=== PATIENT | female | born 1980 | race Caucasian/White ===

== ENCOUNTER 2016-09-21 21:16 | Emergency (ER) | payer MEDICAID ==
[~2016-09-21] VITALS: Ht 160 cm; Wt 68.0 kg
[~2016-09-21 21:16] MED LIST: NORG1TAB30
[2016-09-21 21:23] VITALS: Ht 160 cm; Wt 68.0 kg
--- NOTE | 2016-09-21 22:43 | ERD ---
ER Documentation Chief Complaint Date/Time DATE: 09/21/16 TIME: 22:41 Chief Complaint painful/burning urination x 1 day HPI This is a 35-year-old [facility] complaining of pain and burning with urination started today. States there is some blood in her urine. Denies any back pain,, nausea or vomiting fevers or chills. Denies any vaginal bleeding, vaginal discharge ROS All systems reviewed and are negative except as per history of present illness. Medications Home Meds Active Scripts Cephalexin* (Keflex*) 500 Mg Capsule, 500 MG PO QID for 7 Days, CAP Prov:TEJ TIRADO PA-C 09/21/16 Acetaminophen* (Tylophen*) 500 Mg Capsule, 1 CAP PO Q6H Y for PAIN AND OR ELEVATED TEMP, #30 CAP Prov:TEJ TIRADO PA-C 09/21/16 Reported Medications Norgestimate-Ethinyl Estradiol (Ortho Tri-Cyclen) 7 Daysx 3 28 Tablet 11/14/12 Allergies Allergies: Coded Allergies: No Known Allergy (Unverified , 09/21/16) PMhx/Soc Medical and Surgical Hx: pt denies Medical Hx, pt denies Surgical Hx History of Surgery: No Anesthesia Reaction: No Hx Neurological Disorder: No Hx Respiratory Disorders: No Hx Cardiac Disorders: No Hx Psychiatric Problems: No Hx Miscellaneous Medical Probl: No Hx Alcohol Use: No Hx Substance Use: No Hx Tobacco Use: No Physical Exam Vitals Vital Signs Date Time Temp Pulse Resp B/P Pulse Ox O2 Delivery O2 Flow Rate FiO2 09/21/16 21:23 99.0 100 20 140/90 99 Physical Exam Const: No acute distress Head: Atraumatic Eyes: Normal Conjunctiva ENT: Normal External Ears, Nose and Mouth. Neck: Full range of motion..~ No meningismus. Resp: Clear to auscultation bilaterally Cardio: Regular rate and rhythm, no murmurs Abd: Soft, mild suprapubic tender non distended. Normal bowel sounds. No right lower quadrant pain. No tenderness at McBurney's no left lower quadrant pain. Skin: No petechiae or rashes Back: No midline or flank tenderness. No CVA tenderness Ext: No cyanosis, or edema Neur: Awake and alert Psych: Normal Mood and Affect Results 24 hrs Laboratory Tests Test 09/21/16 22:54 Bedside Urine pH (LAB) 6.5 Bedside Urine Protein (LAB) 2+ Bedside Urine Glucose (UA) Negative Bedside Urine Ketones (LAB) Negative Bedside Urine Blood 3+ Bedside Urine Nitrite (LAB) Positive Bedside Urine Leukocyte Esterase (L 1+ Procedures/MDM This a 35-year-old female who presents the emergency department today complaining of burning and pain with urination and blood in her urine that started today. Given this I did obtain a UA and urine test UA shows 1+ leukocyte esterase 3+ blood and positive nitrites. Urine test is negative Patient symptoms at this time is consistent with UTI. Other differentials to consider are nephrolithiasis. Patient is afebrile and otherwise well- appearing. She has no back pain. Low suspicion for pyelonephritis. Patient be given a prescription for Tylenol and Keflex. At this time the patient is stable for discharge and outpatient management. Patient should follow up with their PCP in the next 1-2 days. They may return to the emergency department sooner for any persistent or worsening of symptoms. Patient understood and agreed with the plan. Departure Diagnosis: Primary Impression: UTI (urinary tract infection) Urinary tract infection type: site unspecified Hematuria presence: with hematuria Qualified Code: N39.0 - Urinary tract infection with hematuria, site unspecified Condition: TEJ Dominguez PA-C Sep 21, 2016 22:42
[2016-09-21 22:50] LABS: URINE BLOOD (Dip) POC 3+ (NEGATIVE)
[2016-09-21] MEDS ORDERED: CEPH-443 PO (23:20)
[2016-09-21] MEDS ORDERED: ACET500C5 PO (23:20)
[2016-09-21 23:57] VITALS: BP 120/71; PULSE 84; RESP 20; TEMP 99
== END 2016-09-21 23:57 | disposition home or self-care (01) ==
LOC: FTE 21:16
DX: N39.0 Urinary tract infection, site not specified (principal)
CPT/HCPCS: 81003; Z7502; 99283